=== PATIENT | female | born 1950 | race Caucasian/White ===

== ENCOUNTER 2016-09-09 13:40 | Emergency (ER) | payer MEDICARE, OTHER ==
[~2016-09-09 13:40] MED LIST: Sodium Chloride 0.9% 1,000 ML BAG ONE
[2016-09-09] MEDS ORDERED: Ondansetron HCl/PF 4 MG/2 ML Vial ONE (13:53)
[2016-09-09 14:07] LABS: #Basophils 0.1 thou/uL (0.0-0.2); #Eosinphils 0.4 thou/uL (0.0-0.7); #Lymphocytes 3.7 thou/uL (1.20-3.40); #Monocytes 0.9 thou/uL (0.11-0.59); #Neutrophils 7.8 thou/uL (1.40-6.50); %Basophils 0.7 % (0.0-1.0); %Eosinophils 2.9 % (0.0-10.0); %Lymphocytes 28.5 % (21.0-51.0); %Monocytes 6.8 % (0.0-10.0); %Neutrophils 61.1 % (42.0-75.0); Hemoglobin 12.7 g/dL (12.0-16.0); Mean Corpuscular HGB CONC 34.3 g/dL (32.0-36.0); Mean Corpuscular Hemoglobin 30.1 pg (27.0-31.0); Mean Corpuscular Volume 87.9 fl (81.0-99.0); Mean Platelet Volume 7.9 fL (7.4-10.4); Platelet Count 421 thou/uL (130-400); RBC Distribution Width 11.8 % (11.5-14.5); Red Blood Cell (RBC) Count 4.22 mill/uL (4.20-5.40); White Blood Cell (WBC) Count 12.8 thou/uL (4.8-10.8)
[2016-09-09 14:25] LABS: CKMB 0.9 ng/mL (0-6.6); Troponin I Less than 0.010 ng/mL (< 0.028)
[2016-09-09 14:29] LABS: ALT (SGPT) 16 U/L (0-55); AST (SGOT) 16 U/L (5-34); Albumin 3.9 g/dL (3.4-4.8); Alkaline Phosphatase 113 U/L (40-150); Anion Gap 12 mmol/L (10-20); BUN (Urea Nitrogen) 11 mg/dL (9.8-20.1); Bilirubin, Total 0.4 mg/dL (0.2-1.2); Calc. Creatinine Clearance 0 mL/min (70-130); Calcium 8.9 mg/dL (7.8-10.44); Carbon Dioxide 25 mmol/L (23-31); Chloride 90 mmol/L (98-107); Estimated GFR-MDRD 71; Globulin 3.2 g/dL (2.4-3.5); Glucose 107 mg/dL (80-115); Potassium 4.1 mmol/L (3.5-5.1); Protein, Total 7.1 g/dL (5.8-8.1); Sodium 123 mmol/L (136-145)
[2016-09-09 14:34] LABS: Bilirubin Negative (Negative); Blood, Urine Negative (Negative); Clarity Clear (Clear); Glucose, Urine (Dipstick) Negative (Negative); Leukocyte Negative (Negative); Nitrite Negative (Negative); Protein, Urine (Dipstick) Negative (Neg-Trace); Specific Gravity, Urine 1.015 (1.005-1.030); Urobilinogen 0.2 mg/dL (0.2-1.0)
--- NOTE | 2016-09-09 16:46 | ERRECORD ---
[facility] EMERGENCY RECORD HPI WEAK-DIZZY (13:47 LHOD) CHIEF COMPLAINT: Patient presents for evaluation of weakness, Patient presents for evaluation of lightheadedness. HISTORIAN: History provided by patient, Additional history obtained from EMS. TIME COURSE: PT REPORTS HER SISTER AND MOTHER ARE DYING AT [place] WITH DEMENTIA. PT REPORTS SHE HAS NOT HAD MUCH APPETITE FOR 3 MONTHS DUE TO IBS. SHE DROVE TO [employer] TO GET HER MOTHER DECAF COFFEE (???), BUT SINCE PT WAS FEELING NAUSEATED SHE TOOK 25MG OF PHENERGAN. BY THE TIME SHE ARRIVED AT THE [place] SHE WAS FEELING SLEEPY AND LIGHTHEADED SO EMS WAS CALLED. D-STICK 105. PT ALSO TAKES XANAX, BUT REPORTS LAST DOSE WAS LAST PM. ROS (13:55 LHOD) CONSTITUTIONAL: Historian denies fever, reports lethargy, reports malaise. CARDIOVASCULAR: Historian denies chest pain. RESPIRATORY: Historian denies shortness of breath. GI: Historian reports abdominal pain, reports nausea, denies vomiting. REPORTS HX OF IBS. GENITOURINARY FEMALE: Historian denies dysuria. MUSCULOSKELETAL: Negative musculoskeletal review of systems. SKIN: Historian denies rash. NEUROLOGIC: Historian denies headache, DIFFUSELY WEAK, TIRED. HEMO/LYMPHATIC: Historian denies easy bruising. PSYCHIATRIC: Historian reports anxiety. NOTES: All systems reviewed, negative except as described above. PAST MEDICAL HISTORY MEDICAL HISTORY: Past medical history includes gastrointestinal disease, irritable bowel syndrome, Past medical history includes history of hypertension, which has been treated, Past medical history includes history of obesity. (13:48 SFRE) FEMALE SURGICAL HISTORY: BLADDER SLING, Surgical history of hysterectomy, Surgical history of orthopedic surgery, BACK. (14:33 SFRE) PSYCHIATRIC HISTORY: Psychiatric history includes, anxiety. (13:48 SFRE) SOCIAL HISTORY: Patient denies alcohol use, Patient denies drug use, Patient has no smoking history. (13:48 SFRE) NOTES: Nursing records reviewed, 2 WEEKS AGO REPORTEDLY PT WAS CHANGED FROM PROZAC TO CYMBALTA. SURGICAL SCAR IS NOT OBVIOUS, BUT PT TELLS ME SHE HAS HAD A CHOLECYSTECTOMY, WELL COLONOSCOPY IN PAST YEAR FOR IBS. PT REPORTS SHE HAS GIVEN HERSELF "COLON CLEANSING" THIS PAST WEEK FOR CONSTIPATION BUT STILL FEELS BLOATED. (14:01 LHOD) KNOWN ALLERGIES No Known Drug Allergies &a-1R&a+25V*p+0X*v7443V*c202B*c15G*c2P*p-0X&a-25V&a+1R Name: Katelyn Arguelles : 1950 F66 MedRec: [id number] AcctNum: [id number] Prepared: ThuSep 09, 2016 18:36 by Interface Page 1 of 3 pMD [facility] EMERGENCY RECORD CURRENT MEDICATIONS (14:30 SFRE) propranolol: TABLET : Strength - 10 mg : ORAL Patient Dose: ?. Xanax: TABLET : Strength - 0.25 mg : ORAL Patient Dose: ?. Phenergan: TABLET : Strength - 25 mg : ORAL Patient Dose: ?. VITAL SIGNS VITAL SIGNS: BP: 159/96, Pulse: 67, Resp: 18, Temp: 98.0 (Tympanic), Pain: 0, O2 sat: 97 on Room Air, Time: 09/09/2016 13:46. (13:46 SFRE) BP: 145/89, Pulse: 68, Resp: 18, Temp: 98.0 (Tympanic), Pain: 0, O2 sat: 97 on Room Air, Time: 09/09/2016 14:27. (14:27 SFRE) BP: 155/92, Pulse: 66, Resp: 18, Temp: 98.0 (Tympanic), O2 sat: 99 on Room Air, Time: 09/09/2016 15:04. (15:04 SFRE) BP: 140/86, Pulse: 65, Resp: 16, Temp: 97.8 (Tympanic), Pain: 0, O2 sat: 98 on Room Air, Time: 09/09/2016 15:34. (15:34 SFRE) BP: 120/84, Pulse: 68, Resp: 18, Temp: 97.8 (Tympanic), Pain: 0, O2 sat: 100 on Room Air, Time: 09/09/2016 15:56. (15:56 SFRE) BP: 121/84, Pulse: 67, Resp: 18, Temp: 98.0, Pain: 0, O2 sat: 100 on RA, Time: 09/09/2016 16:29. (16:29 SFRE) PHYSICAL EXAM (13:56 LHOD) CONSTITUTIONAL: Vital signs reviewed, Patient afebrile, Pulse normal, Blood pressure, hypertensive, Respiratory rate normal, Patient alert and oriented to person, place and time, VERY TIRED APPEARING, LAYS LIMPLY ON STRETCHER. HEAD: Head exam included findings of head atraumatic. EYES: Pupils equally round and reactive to light, Extraocular muscles intact, SIGNIFICANT AMOUNT OF EYE MAKE UP (WHICH PT REPORTS SHE HAS HAD ON 3 DAYS). ENT: Pharynx exam normal, REPORTS SHE HAS "THRUSH" BUT NO EVIDENCE ON EXAM. NECK: Neck exam included findings of normal range of motion, Trachea midline. RESPIRATORY CHEST: Respiratory exam included findings of no respiratory distress, Breath sounds clear. CARDIOVASCULAR: Cardiovascular exam included findings of heart rate regular rate and rhythm, Heart sounds normal. ABDOMEN FEMALE: Abdominal exam included findings of abdomen tender, diffusely, mild intensity, ABDOMEN SOFT WITHOUT GUARDING. UPPER EXTREMITY: Upper extremity exam normal. LOWER EXTREMITY: Lower extremity exam normal. NEURO: AWAKE, ORIENTED, BUT DIFFUSELY WEAK. LIMPLY RAISES &a-1R&a+25V*p+0X*l4517S*c202B*c15G*c2P*p-0X&a-25V&a+1R Name: Katelyn Arguelles : 1950 F66 MedRec: [id number] AcctNum: [id number] Prepared: Greg Sep 09, 2016 18:36 by Interface Page 2 of 3 pMD [facility] EMERGENCY RECORD ARMS AND LEGS FROM STRETCHER BUT QUICKLY LETS THEM DROP. SKIN: no rash. PSYCHIATRIC: Affect, flat, ABLE TO ANSWER ALL QUESTIONS, LAYING LIMPLY ON STRETCHER. EKG INTERPRETATION (13:53 LHOD) 12 LEAD EKG INTERPRETATION: 12 lead EKG interpreted by Emergency Department Physician at time of study, 12 lead EKG shows normal sinus rhythm, Rate (beats per minute): 68, with no ectopics, T waves normal, Wanda normal. MEDICATION ADMINISTRATION SUMMARY Drug Name: Zofran intravenous, Dose Ordered: 8 mg, Route: IV Push, Status: Given, Time: 14:02 09/09/2016, Drug Name: Normal Saline, Dose Ordered: 150 mL/hr, Route: IV Fluid Infusion, Status: Given, Time: 14:00 09/09/2016, Detailed record available in Medication Service section. DOCTOR NOTES (14:41 LHOD) TEXT: 1441--DAUGHTER IS HERE, REPORTS SHE HAS POWER OF HOMICIDE [employer] AND REQUESTS [facility]. 1523--STILL WAITING TO HEAR FROM [facility]. PROBLEM LIST No recorded problems DIAGNOSIS (14:59 LHOD) FINAL: PRIMARY: LETHARGY ASSOCIATED WITH HYPONATREMIA. PRESCRIPTION No recorded prescriptions DISPOSITION PATIENT: Disposition Type: Transfer, Disposition: [facility], Condition: Good. (14:59 LHOD) Disposition: Transfer to [facility]. (15:55 LHOD) Patient left the department. (16:38 SFRE) [place]: LHOD=MD Alexander, Fide SFRE=MICHAEL Javier, &a-1R&a+25V*p+0X*x4037P*c202B*c15G*c2P*p-0X&a-25V&a+1R Name: Katelyn Arguelles : 1950 F66 MedRec: [id number] AcctNum: [id number] Prepared: Greg Sep 09, 2016 18:36 by Interface Page 3 of 3 pMD MTDD
--- NOTE | 2016-09-09 16:46 | PICIS ---
[facility] EMERGENCY RECORD COMMUNICATIONS (15:54 LHOD) COMMUNICATIONS: Notes: 3289--DISCUSSED WITH [facility] EDMD DR. SANCHEZ, ACCEPTS FOR TRANSFER. TRIAGE (ThuSep 09, 2016 13:45 SFRE) TRIAGE NOTES: WEAKNESS. (ThuSep 09, 2016 13:45 SFRE) PATIENT: NAME: Katelyn Arguelles, AGE: 66, GENDER: female, : Thu1950, TIME OF GREET: ThuSep 09, 2016 13:42, PREFERRED LANGUAGE: Botswanan, ECODE BILLING MAP: [facility], SSN: [id number], Zip Code: [address], KG WEIGHT: 68.04, PHONE: , , , PERSON ID: [id number], PCP: JAZMINE. (ThuSep 09, 2016 13:45 SFRE) COMPLAINT: WEAKNESS. (ThuSep 09, 2016 13:45 SFRE) ADMISSION: URGENCY: 3 Urgent, ADMISSION SOURCE: Home, TRANSPORT: AMBULANCE - [facility], BED: ED -01. (ThuSep 09, 2016 13:45 SFRE) ASSESSMENT: Symptoms began 09/09/2016, Symptoms began 30 min ago. (13:48 SFRE) PAIN: No complaint of pain. (13:48 SFRE) SIRS SCORING: Heart Rate 55-109 (0), Temp range 96.8-101.1 (0), respiratory rate 12-24 (0), Mental Status altered: no (0). (13:48 SFRE) TRIAGE SCREENING: Patient denies suicidal ideation, Patient denies presence of domestic violence. (13:48 SFRE) PROVIDERS: TRIAGE NURSE: Stacey Javier RN. (ThuSep 09, 2016 13:45 SFRE) VITAL SIGNS: BP 159/96, Pulse 67, Resp 18, Temp 98.0, (Tympanic), Pain 0, O2 Sat 97, on Room Air, Time 09/09/2016 13:46. (13:46 SFRE) KNOWN ALLERGIES No Known Drug Allergies CURRENT MEDICATIONS (14:30 SFRE) propranolol: TABLET : Strength - 10 mg : ORAL Patient Dose: ?. Xanax: TABLET : Strength - 0.25 mg : ORAL Patient Dose: ?. Phenergan: TABLET : Strength - 25 mg : ORAL Patient Dose: ?. VITAL SIGNS VITAL SIGNS: BP: 159/96, Pulse: 67, Resp: 18, Temp: 98.0 (Tympanic), Pain: 0, O2 sat: 97 on Room Air, Time: 09/09/2016 13:46. (13:46 SFRE) BP: 145/89, Pulse: 68, Resp: 18, Temp: 98.0 (Tympanic), Pain: 0, O2 sat: 97 on Room Air, Time: 09/09/2016 14:27. (14:27 SFRE) BP: 155/92, Pulse: 66, Resp: 18, Temp: 98.0 (Tympanic), O2 sat: 99 on Room Air, Time: 09/09/2016 15:04. (15:04 SFRE) &a-1R&a+25V*p+0X*s7602L*c202B*c15G*c2P*p-0X&a-25V&a+1R Name: Katelyn Arguelles : 1950 F66 MedRec: [id number] AcctNum: [id number] Prepared: ThuSep 09, 2016 18:43 by Interface Page [address] [facility] EMERGENCY RECORD BP: 140/86, Pulse: 65, Resp: 16, Temp: 97.8 (Tympanic), Pain: 0, O2 sat: 98 on Room Air, Time: 09/09/2016 15:34. (15:34 SFRE) BP: 120/84, Pulse: 68, Resp: 18, Temp: 97.8 (Tympanic), Pain: 0, O2 sat: 100 on Room Air, Time: 09/09/2016 15:56. (15:56 SFRE) BP: 121/84, Pulse: 67, Resp: 18, Temp: 98.0, Pain: 0, O2 sat: 100 on RA, Time: 09/09/2016 16:29. (16:29 SFRE) NURSING ASSESSMENT: FOCUSED CONSTITUTIONAL: Patient arrives, via stretcher, via Emergency Medical Services, History obtained from patient, Patient appears comfortable, Patient cooperative, Patient alert, Oriented to person, place and time, Skin warm, Skin dry, Skin normal in color, Mucous membranes pink, Mucous membranes moist, Patient is well-groomed, Patient complains of WEAKNESS, NAUSEA. (13:50 SFRE) NONVERBAL PAIN: Result: 0. (14:32 SFRE) EYES: Focused eye assessment finding include pupils equally round and reactive to light. (13:50 SFRE) NEURO: Focused neuro assessment findings include patient alert, cooperative, No facial droop noted, Speech coherent, Weakness, GENERALIZED, No loss of consciousness, Notes: PATIENT TOOK PHENERGAN TODAY AND C/O BEING EXTREMELY SLEEPY. (13:50 SFRE) GCS: Eye opening: (3) To speech, Verbal: (5) - Oriented/conversive, Motor: (6) - Obeys commands/Spontaneous, GCS Total: 14. (13:50 SFRE) RESPIRATORY: Focused respiratory assessment findings include breath sounds clear. (13:50 SFRE) ABDOMEN: Focused abdominal assessment findings include abdomen soft, non tender, no constipation, no diarrhea, Nausea present, no vomiting, Bowel sounds present. (13:50 SFRE) GENITOURINARY FEMALE: Focused genitourinary assessment findings include complaint of difficulty urinating, Notes: REPORTS DIFFICULTY GETTING URINE STREAM GOING. (13:50 SFRE) MUSCULOSKELETAL: Focused musculoskeletal assessment findings include normal range of motion. (13:50 SFRE) SAFETY: Side rails up, Cart/Stretcher in lowest position, Call light within reach, Hospital ID band on. (13:50 SFRE) NURSING PROCEDURE: HORSE RANCHER (13:45 SFRE) HORSE RANCHER: Patient placed on secured entrance monitor, Heart rate: 67, showing normal sinus rhythm, Patient placed on non-invasive blood pressure monitor, Patient placed on continuous pulse oximetry, Adult/pediatric oxisensor applied, Oxygen saturation 97%. NURSING PROCEDURE: EKG CHART (13:52 MDEB) PATIENT IDENTIFIER: Patient actively involved in identification process, Patient's identity verified by patient stating name, Patient's identity verified by hospital ID bracelet. EKG: EKG indicated for weakness, 12 lead EKG performed on the &a-1R&a+25V*p+0X*f1062N*c202B*c15G*c2P*p-0X&a-25V&a+1R Name: Katelyn Arguelles Gabriele : 1950 F66 MedRec: [id number] AcctNum: [id number] Prepared: ThuSep 09, 2016 18:43 by Interface Page [address] [facility] EMERGENCY RECORD left chest. FOLLOW-UP: After procedure, EKG for interpretation given to Dr. munoz. NOTES: Emotional support needed and given, Patient tolerated procedure well. SAFETY: Side rails up, Cart/Stretcher in lowest position, Family at bedside, Call light within reach, Hospital ID band on. NURSING PROCEDURE: INTAKE AND OUTPUT (16:05 SFRE) INTAKE AND OUTPUT: IV intake(ml): 600, Total Intake (ml): 600ml, Urine output(ml): 1050, Total Output (ml): 1050ml, Grand Total: Output is greater than intake by 450mls. NURSING PROCEDURE: IV IV SITE 1: IV therapy indicated for hydration, IV therapy indicated for medication administration, IV established, to the left hand, Notes: BY EMS WHEEL ROLLER, 20G TO LEFT HAND. (14:05 SFRE) FOLLOW-UP SITE 1: After procedure, no drainage at IV site, After procedure, no swelling at IV site, After procedure, no redness at IV site. (14:32 SFRE) NURSING PROCEDURE: NURSE NOTES NURSES NOTES: Notes: UP TO BSC WITH NO ASSIST. (14:23 SFRE) Notes: FAMILY AT BS. (14:25 SFRE) Notes: LAUGHING WITH FAMILY AT BS. NAD NOTED AT THIS TIME. VSS. (15:10 SFRE) Notes: RESTING QUIETLY. (15:48 SFRE) NURSING PROCEDURE: TRANSFER (16:29 SFRE) TRANSFER: Reason for transfer primary physician request, Diagnosis: HYPONATREMIA, Accepting institution: [facility], Accepting physician: LAURA, Referring physician: ALEXANDER, Transported by urgent ambulance, accompanied by emergency medical services personnel, Report called to receiving facility, ATTEMPTED, HUNG UP ON X2, Bed assigned ON ARRIVAL, Summary of Care printed, Copy of patient record prepared for receiving facility. EQUIPMENT WITH PATIENT: Equipment with patient at time of transfer secured entrance monitor, Equipment with patient at time of transfer IV pump, Saline lock intact and patent at time of transfer. SAFETY: Side rails up, Cart/Stretcher in lowest position, Family at bedside, Call light within reach, Hospital ID band on. VITAL SIGNS: BP: 121, / 84, Pulse: 67, Resp: 18, Temp: 98.0, Pain: 0, O2 sat: 100, on: RA. NURSING PROCEDURE: URINE COLLECTION (14:23 SFRE) URINE COLLECTION FEMALE: Urine collected by void, output amount (mL) 150, urine yellow in color, and clear, Specimen labeled in the presence of the patient and sent to lab. &a-1R&a+25V*p+0X*q6560Z*c202B*c15G*c2P*p-0X&a-25V&a+1R Name: Katelyn Arguelles : 1950 F66 MedRec: [id number] AcctNum: [id number] Prepared: ThuSep 09, 2016 18:43 by Interface Page 3 of 10 [facility] EMERGENCY RECORD ORDER DETAILS Order Name: HORSE RANCHER ED, Status: Done, Time: 13:48 09/09/2016, User: NADEEM, - Ordered for: MD Munoz Lefayne, - Entered by: MD Munoz Lefayne - long Sep 09, 2016 13:46, - Quantity: 1, Order Name: Cardiac Profile w/CKMB & Troponin - I, Status: Active, Time: 13:46 09/09/2016, User: ALEXA, - Ordered for: MD Munoz Lefayne, - Entered by: MD Munoz Lefayne - Greg Sep 09, 2016 13:46, - Quantity: 1, Order Name: CBC with Differential, Status: Active, Time: 13:46 09/09/2016, User: ALEXA, - Ordered for: MD Munoz Lefayne, - Entered by: MD Munoz Lefayne - Tue Sep 09, 2016 13:46, - Quantity: 1, Order Name: Comprehensive Metabolic Panel, Status: Active, Time: 13:46 09/09/2016, User: ALEXA, - Ordered for: MD Munoz Lefayne, - Entered by: MD Munoz Lefayne - Tue Sep 09, 2016 13:46, - Quantity: 1, Order Name: EKG 12 Lead in Emergency Room, Status: Active, Time: 13:46 09/09/2016, User: ALEXA, - Ordered for: MD Munoz Lefayne, - Entered by: MD Munoz Lefayne - long Sep 09, 2016 13:46, - Quantity: 1, Order Name: SALINE LOCK, Status: Done, Time: 13:48 09/09/2016, [facility], - Ordered for: MD Munoz Lefayne, - Entered by: MD Munoz Lefayne - long Sep 09, 2016 13:46, - Quantity: 1, Order Name: Urinalysis w/ Rflx Microscopic, Status: Active, Time: 13:46 09/09/2016, User: ALEXA, - Ordered for: MD Munoz Lefayne, - Entered by: MD Munoz Lefayne - long Sep 09, 2016 13:46, - Quantity: 1. MEDICATION ADMINISTRATION SUMMARY Drug Name: Zofran intravenous, Dose Ordered: 8 mg, Route: IV Push, Status: Given, Time: 14:02 09/09/2016, Drug Name: Normal Saline, Dose Ordered: 150 mL/hr, Route: IV Fluid Infusion, Status: Given, Time: 14:00 09/09/2016, Detailed record available in Medication Service section. MEDICATION SERVICE Normal Saline: Order: Normal Saline (0.9 % sodium chloride) - Dose: 150 mL/hr : IV Fluid Infusion &a-1R&a+25V*p+0X*r3652N*c202B*c15G*c2P*p-0X&a-25V&a+1R Name: Katelyn Arguelles : 1950 F66 MedRec: [id number] AcctNum: [id number] Prepared: ThuSep 09, 2016 18:43 by Interface Page [address] [facility] EMERGENCY RECORD Ordered by: Fide Munoz MD Entered by: Fide Munoz MD ThuSep 09, 2016 13:46 , Acknowledged by: Stacey Javier RN ThuSep 09, 2016 13:48 Documented as given by: Stacey Javier RN ThuSep 09, 2016 14:00 Patient, Medication, Dose, Route and Time verified prior to administration. Amount given: 1L, IV SITE #1 IV fluids established for hydration, IV SITE #1 into left hand, IV SITE #1 1st bag hung, amount 1 Liter hung, IV SITE #1 Rate of infusion (non-bolus) Infusing at 150 ml/hr, via primary tubing, via pump tubing, IV SITE #1 on IV pump, Awake and alert- acceptable, Catheter placement confirmed via flush prior to administration, IV site without signs or symptoms of infiltration during medication administration, No swelling during administration, No drainage during administration, IV flushed after administration, Correct patient, time, route, dose and medication confirmed prior to administration, Patient advised of actions and side-effects prior to administration, Allergies confirmed and medications reviewed prior to administration, Patient in position of comfort, Side rails up, Cart in lowest position, Family at bedside. : Follow Up : Response assessment performed, No signs or symptoms of allergic reaction noted, _IV SITE #1:_, IV fluid infusion discontinued, on ThuSep 09, 2016 16:38, Total fluid hydration time IV site 1 2 hours, 40 minutes, ., Total amount infused: 700. (16:37 SFRE) Zofran intravenous: Order: Zofran intravenous (ondansetron HCl) - Dose: 8 mg : IV Push Ordered by: Fide Munoz MD Entered by: Fide Munoz MD ThuSep 09, 2016 13:46 , Acknowledged by: Stacey Javier RN ThuSep 09, 2016 13:49 Documented as given by: Stacey Javier RN ThuSep 09, 2016 14:02 Patient, Medication, Dose, Route and Time verified prior to administration. Amount given: 8MG, IV SITE #1 IVP, initial medication, Slowly, Awake and alert- acceptable, Catheter placement confirmed via flush prior to administration, IV site without signs or symptoms of infiltration during medication administration, No swelling during administration, No drainage during administration, IV flushed after administration, Correct patient, time, route, dose and medication confirmed prior to administration, Patient advised of actions and side-effects prior to administration, Allergies confirmed and medications reviewed prior to administration, Patient in position of comfort, Side rails up, Cart in lowest position, Family at bedside. HPI WEAK-DIZZY (13:47 LHOD) CHIEF COMPLAINT: Patient presents for evaluation of weakness, Patient presents for evaluation of lightheadedness. HISTORIAN: History provided by patient, Additional history obtained from EMS. TIME COURSE: PT REPORTS HER SISTER AND MOTHER ARE DYING AT ME WITH DEMENTIA. PT REPORTS SHE HAS NOT HAD MUCH APPETITE FOR 3 MONTHS &a-1R&a+25V*p+0X*w0135L*c202B*c15G*c2P*p-0X&a-25V&a+1R Name: Katelyn Arguelles : 1950 F66 MedRec: [id number] AcctNum: [id number] Prepared: Greg Sep 09, 2016 18:43 by Interface Page [address] [facility] EMERGENCY RECORD DUE TO IBS. SHE DROVE TO [facility] TO GET HER MOTHER DECAF COFFEE (???), BUT SINCE PT WAS FEELING NAUSEATED SHE TOOK 25MG OF PHENERGAN. BY THE TIME SHE ARRIVED AT THE ME SHE WAS FEELING SLEEPY AND LIGHTHEADED SO EMS WAS CALLED. D-STICK 105. PT ALSO TAKES XANAX, BUT REPORTS LAST DOSE WAS LAST PM. ROS (13:55 LHOD) CONSTITUTIONAL: Historian denies fever, reports lethargy, reports malaise. CARDIOVASCULAR: Historian denies chest pain. RESPIRATORY: Historian denies shortness of breath. GI: Historian reports abdominal pain, reports nausea, denies vomiting. REPORTS HX OF IBS. GENITOURINARY FEMALE: Historian denies dysuria. MUSCULOSKELETAL: Negative musculoskeletal review of systems. SKIN: Historian denies rash. NEUROLOGIC: Historian denies headache, DIFFUSELY WEAK, TIRED. HEMO/LYMPHATIC: Historian denies easy bruising. PSYCHIATRIC: Historian reports anxiety. NOTES: All systems reviewed, negative except as described above. PAST MEDICAL HISTORY MEDICAL HISTORY: Past medical history includes gastrointestinal disease, irritable bowel syndrome, Past medical history includes history of hypertension, which has been treated, Past medical history includes history of obesity. (13:48 SFRE) FEMALE SURGICAL HISTORY: BLADDER SLING, Surgical history of hysterectomy, Surgical history of orthopedic surgery, BACK. (14:33 SFRE) PSYCHIATRIC HISTORY: Psychiatric history includes, anxiety. (13:48 SFRE) SOCIAL HISTORY: Patient denies alcohol use, Patient denies drug use, Patient has no smoking history. (13:48 SFRE) NOTES: Nursing records reviewed, 2 WEEKS AGO REPORTEDLY PT WAS CHANGED FROM PROZAC TO CYMBALTA. SURGICAL SCAR IS NOT OBVIOUS, BUT PT TELLS ME SHE HAS HAD A CHOLECYSTECTOMY, WELL COLONOSCOPY IN PAST YEAR FOR IBS. PT REPORTS SHE HAS GIVEN HERSELF "COLON CLEANSING" THIS PAST WEEK FOR CONSTIPATION BUT STILL FEELS BLOATED. (14:01 LHOD) PHYSICAL EXAM (13:56 LHOD) CONSTITUTIONAL: Vital signs reviewed, Patient afebrile, Pulse normal, Blood pressure, hypertensive, Respiratory rate normal, Patient alert and oriented to person, place and time, VERY TIRED APPEARING, LAYS LIMPLY ON STRETCHER. HEAD: Head exam included findings of head atraumatic. EYES: Pupils equally round and reactive to light, Extraocular muscles intact, SIGNIFICANT AMOUNT OF EYE MAKE UP (WHICH PT REPORTS SHE HAS HAD ON 3 DAYS). &a-1R&a+25V*p+0X*g8301F*c202B*c15G*c2P*p-0X&a-25V&a+1R Name: Katelyn Arguelles : 1950 F66 MedRec: [id number] AcctNum: [id number] Prepared: long Sep 09, 2016 18:43 by Interface Page [address] [facility] EMERGENCY RECORD ENT: Pharynx exam normal, REPORTS SHE HAS "THRUSH" BUT NO EVIDENCE ON EXAM. NECK: Neck exam included findings of normal range of motion, Trachea midline. RESPIRATORY CHEST: Respiratory exam included findings of no respiratory distress, Breath sounds clear. CARDIOVASCULAR: Cardiovascular exam included findings of heart rate regular rate and rhythm, Heart sounds normal. ABDOMEN FEMALE: Abdominal exam included findings of abdomen tender, diffusely, mild intensity, ABDOMEN SOFT WITHOUT GUARDING. UPPER EXTREMITY: Upper extremity exam normal. LOWER EXTREMITY: Lower extremity exam normal. NEURO: AWAKE, ORIENTED, BUT DIFFUSELY WEAK. LIMPLY RAISES ARMS AND LEGS FROM STRETCHER BUT QUICKLY LETS THEM DROP. SKIN: no rash. PSYCHIATRIC: Affect, flat, ABLE TO ANSWER ALL QUESTIONS, LAYING LIMPLY ON STRETCHER. LAB INTERPRETATION (14:39 LHOD) INTERPRETATION: I reviewed the lab results, CBC abnormal, White blood cell count elevated, Chemistry abnormal, Sodium decreased, Chloride decreased, Cardiac enzymes normal, Urinalysis normal. EVENTS TRANSFER: Triage to Emergency Main ED -01. (13:45 SFRE) Removed from Emergency Main ED -01. (16:38 SFRE) EKG INTERPRETATION (13:53 LHOD) 12 LEAD EKG INTERPRETATION: 12 lead EKG interpreted by Emergency Department Physician at time of study, 12 lead EKG shows normal sinus rhythm, Rate (beats per minute): 68, with no ectopics, T waves normal, [place] normal. DOCTOR NOTES (14:41 LHOD) TEXT: 1441--DAUGHTER IS HERE, REPORTS SHE HAS POWER OF CHILD [facility] WORKER AND REQUESTS [facility]. 1523--STILL WAITING TO HEAR FROM [facility]. PROBLEM LIST No recorded problems DIAGNOSIS (14:59 LHOD) FINAL: PRIMARY: LETHARGY ASSOCIATED WITH HYPONATREMIA. DISPOSITION PATIENT: Disposition Type: Transfer, Disposition: [facility], Condition: Good. (14:59 LHOD) &a-1R&a+25V*p+0X*j5665R*c202B*c15G*c2P*p-0X&a-25V&a+1R Name: Katelyn Arguelles : 1950 F66 MedRec: [id number] AcctNum: [id number] Prepared: ThuSep 09, 2016 18:43 by Interface Page [address] [facility] EMERGENCY RECORD Disposition: Transfer to [facility]. (15:55 LHOD) Patient left the department. (16:38 SFRE) PRESCRIPTION No recorded prescriptions IMAGING *EKG: Image captured from scanner. (14:49 SFRE) *MEMORANDUM OF TRANSFER: Image captured from scanner. (16:06 LWAL) EMS TRANSPORT ORDERS: Image captured from scanner. (16:06 LWAL) CONSENTS: Image captured from scanner. (16:07 LWAL) TRANSFER QI WORKSHEET: Image captured from scanner. (16:27 LWAL) Page 2 added. Image captured from scanner. (16:30 LWAL) *SUPPLY CHARGE SHEET: Image captured from scanner. (16:36 SFRE) ADMIN DIGITAL SIGNATURE: MICHAEL Javier, . (16:31 SFRE) MICHAEL Javier, . (16:38 SFRE) MD Munoz Lefayne. (18:33 LHOD) RESULTS LABORATORY: CBC with Differential Collection DT: ThuSep 09, 2016 14:02, *White Blood Cell (WBC) Count 12.8 - H thou/uL, Range (4.8-10.8), Red Blood Cell (RBC) Count 4.22 mill/uL, Range (4.20-5.40), Hemoglobin 12.7 g/dL, Range (12.0-16.0), Hematocrit 37.1 %, Range (36.0-47.0), Mean Corpuscular Volume 87.9 fl, Range (81.0-99.0), Mean Corpuscular Hemoglobin 30.1 pg, Range (27.0-31.0), Mean Corpuscular HGB CONC 34.3 g/dL, Range (32.0-36.0), RBC Distribution Width 11.8 %, Range (11.5-14.5), *Platelet Count 421 - H thou/uL, Range (130-400), Mean Platelet Volume 7.9 fL, Range (7.4-10.4), %Neutrophils 61.1 %, Range (42.0-75.0), %Lymphocytes 28.5 %, Range (21.0-51.0), %Monocytes 6.8 %, Range (0.0-10.0), %Eosinophils 2.9 %, Range (0.0-10.0), %Basophils 0.7 %, Range (0.0-1.0), *#Neutrophils 7.8 - H thou/uL, Range (1.40-6.50), *#Lymphocytes 3.7 - H thou/uL, Range (1.20-3.40), *#Monocytes 0.9 - H thou/uL, Range (0.11-0.59), #Eosinphils 0.4 thou/uL, Range (0.0-0.7), #Basophils 0.1 thou/uL, Range (0.0-0.2). (14:09 OD) Cardiac Profile w/CKMB & TropI Collection DT: ThuSep 09, 2016 14:02, CKMB 0.9 ng/mL, Range (0-6.6), Troponin I Less than 0.010 ng/mL, Range (< 0.028), Reference Range &a-1R&a+25V*p+0X*f2185X*c202B*c15G*c2P*p-0X&a-25V&a+1R Name: Katelyn Arguelles : 1950 F66 MedRec: [id number] AcctNum: [id number] Prepared: ThuSep 09, 2016 18:43 by Interface Page [address] [facility] EMERGENCY RECORD , 0.00 - 0.028 ng/mL Negative 0.029 - 0.29 ng/mL , Indeterminate Greater or Equal to 0.3 ng/mL Strongly suggests HI , . (14:28 LHOD) Cardiac Profile w/CKMB & TropI Collection DT: ThuSep 09, 2016 14:02, CKMB 0.9 ng/mL, Range (0-6.6), Troponin I Less than 0.010 ng/mL, Range (< 0.028), Reference Range , 0.00 - 0.028 ng/mL Negative 0.029 - 0.29 ng/mL , Indeterminate Greater or Equal to 0.3 ng/mL Strongly suggests HI , . (14:28 [facility] Comprehensive Metabolic Panel Collection DT: ThuSep 09, 2016 14:02, *Sodium 123 - L mmol/L, Range (136-145), Potassium 4.1 mmol/L, Range (3.5-5.1), *Chloride 90 - L mmol/L, Range (98-107), Carbon Dioxide 25 mmol/L, Range (23-31), Anion Gap 12 mmol/L, Range (10-20), BUN (Urea Nitrogen) 11 mg/dL, Range (9.8-20.1), Creatinine 0.81 mg/dL, Range (0.6-1.1), Estimated GFR-MDRD 71 , Reference Range for Estimated GFR: Greater than 90, mL/min/1.73 m2 NOTE: The MDRD equation has not been validated for use, with the elderly (over 70 years of age), women, patients with, serious comorbid condition or persons with extremes of body size, muscle, mass, or nutritional status. , Glucose 107 mg/dL, Range (80-115), Calcium 8.9 mg/dL, Range (7.8-10.44), Bilirubin, Total 0.4 mg/dL, Range (0.2-1.2), Protein, Total 7.1 g/dL, Range (5.8-8.1), NOTE: Plasma values are generally 0.3 to 0.5 g/dL higher than serum values, due to the presence of fibrinogen. , Albumin 3.9 g/dL, Range (3.4-4.8), Globulin 3.2 g/dL, Range (2.4-3.5), Alb/Glob Ratio 1.2 g/dL, Range (1.2-2.2), Alkaline Phosphatase 113 U/L, Range (40-150), AST (SGOT) 16 U/L, Range (5-34), ALT (SGPT) 16 U/L, Range (0-55). (14:38 MDEB) Urinalysis w/ Rflx Microscopic Collection DT: ThuSep 09, 2016 14:31, Color Yellow , Range (Yellow), Clarity Clear , Range (Clear), Specific [place], Urine 1.015 , Range (1.005-1.030), pH, Urine 7.0 , Range (5.0-9.0), Leukocyte Negative , Range (Negative), Nitrite Negative , Range (Negative), Protein, Urine (Dipstick) Negative mg/dL, Range (Neg-Trace), &a-1R&a+25V*p+0X*m4202U*c202B*c15G*c2P*p-0X&a-25V&a+1R Name: Katelyn Arguelles : 1950 F66 MedRec: [id number] AcctNum: [id number] Prepared: ThuSep 09, 2016 18:43 by Interface Page [address] [facility] EMERGENCY RECORD Glucose, Urine (Dipstick) Negative mg/dL, Range (Negative), Ketone, Urine Negative mg/dL, Range (Negative), Urobilinogen 0.2 mg/dL, Range (0.2-1.0), Bilirubin Negative , Range (Negative), Blood, Urine Negative , Range (Negative). (14:39 LHOD) [place]: LHOD=MD Alexander, Fide FERNANDOAL=MICHAEL Owens, Daisha HUERTA=MICHAEL Summers, [place] SFRE=MICHAEL Javier, &a-1R&a+25V*p+0X*p7970V*c202B*c15G*c2P*p-0X&a-25V&a+1R Name: Katelyn Arguelles : 1950 F66 MedRec: [id number] AcctNum: [id number] Prepared: Greg Sep 09, 2016 18:43 by Interface Page 10 of 10 pMD [facility]TDD
== END 2016-09-09 16:14 | disposition short-term general hospital (02) ==
LOC: MADERS 13:40
DX: E87.1 Hypo-osmolality and hyponatremia (principal); I10 Essential (primary) hypertension; E66.9 Obesity, unspecified; F41.9 Anxiety disorder, unspecified
CPT/HCPCS: 36415; 80053; 81003; 82553; 84484; 85025; 93005; 96361; 96374; J2405; J7050